=== PATIENT | male | born 2000 | race Two or more races ===

== ENCOUNTER 2019-08-07 19:13 | Emergency (ER) | payer MEDICAID ==
[~2019-08-07] VITALS: Ht 188 cm; Wt 158.8 kg
[2019-08-07 19:36] VITALS: BP 119/92
[2019-08-07 21:46] LABS: Basophils # (auto) 0.1 uL; Basophils % (auto) 0.3 % (0.0-2.0); Eosinophils # (auto) 0 uL; Hematocrit 45.7 % (41.0-53.0); Hemoglobin 15.6 g/dL (13.5-17.5); Lymphocytes # (auto) 0.9 uL; Lymphocytes % (auto) 5.4 % (10.0-50.0); Mean Corpuscular Hemoglobin 30.4 pg (28.0-32.0); Mean Corpuscular Hgb Conc. 34.2 g/dL (32.0-36.0); Mean Corpuscular Volume 88.9 fL (80.0-100.0); Monocytes # (auto) 0.8 uL; Monocytes % (auto) 4.5 % (0.0-12.0); Neutrophils # (auto) 15.7 uL; Neutrophils % (auto) 89.8 % (37.0-80.0); Platelet Count (auto) 224 10^3/uL (140-450); Red Blood Cells 5.14 10^6/uL (4.5-5.90); Red Cell Distribution Width 13.9 % (11.8-14.3); White Blood Cell 17.5 10^3/uL (4.4-10.8)
[2019-08-07 22:03] LABS: Albumin 3.9 g/dL (3.4-5.0); Magnesium 2.4 mg/dL (1.6-2.6)
[2019-08-07 22:05] LABS: BUN/Creatinine Ratio 10.7; Bilirubin, Total 0.3 mg/dL (0.2-1.0); Total Protein 7.7 g/dL (6.4-8.2)
== END 2019-08-07 23:25 | disposition home or self-care (01) ==
LOC: EDBD 19:13 → ER 19:13 → EDSEX 19:13 → ER 23:25
DX: R56.9 Unspecified convulsions (principal)
CPT/HCPCS: 36415; 80053; 83735; 85025; 96365; 99284; J1953; J7060

== ENCOUNTER 2020-09-27 22:26 | Emergency (ER) | payer MEDICAID ==
[~2020-09-27] VITALS: Ht 185.4 cm; Wt 162.4 kg
[2020-09-27] MEDS ORDERED: ALBUTEROL SULF 2.5 MG/0.5ML(0.5%) NEB SOLN NEB ONE (22:45)
[2020-09-27] MEDS ORDERED: IPRATROPIUM BROM 0.5 MG/2.5ML INH SOL NEB ONE (22:45)
[2020-09-27 23:05] VITALS: BP 133/59
[2020-09-28] MEDS ORDERED: methylPREDNISolone SOD SUCC 125 MG/2 ML VL IM ONE (00:30)
== END 2020-09-28 00:59 | disposition home or self-care (01) ==
LOC: ER 22:26
DX: J45.901 Unspecified asthma with (acute) exacerbation (principal); R07.9 Chest pain, unspecified; E66.9 Obesity, unspecified; Z68.42 Body mass index [BMI] 45.0-49.9, adult
CPT/HCPCS: 71045; 94640; 96372; 99283; J2930; J7644

== ENCOUNTER 2022-05-29 21:37 | Emergency (ER) | payer MEDICAID ==
[~2022-05-29] VITALS: Ht 188 cm; Wt 157.7 kg
[2022-05-30] MEDS ORDERED: ONDANSETRON ODT 4 MG TAB PO ONE (01:15)
[2022-05-30] MEDS ORDERED: HYDROcodone-ACET 5/325MG TAB PO ONE (01:15)
[2022-05-30 01:55] VITALS: BP 107/52
[2022-05-30 02:27] LABS: Basophils # (auto) 0.1 10 ^3/uL (0-0.2); Basophils % (auto) 0.4 % (0.0-2.0); Eosinophils # (auto) 0 10 ^3/uL (0-0.8); Eosinophils % (auto) 0.1 % (0.0-7.0); Hematocrit 45.2 % (41.0-53.0); Hemoglobin 15.4 g/dL (13.5-17.5); Lymphocytes # (auto) 1.3 10 ^3/uL (0.4-5.4); Lymphocytes % (auto) 7.7 % (10.0-50.0); Mean Corpuscular Hemoglobin 30.5 pg (28.0-32.0); Mean Corpuscular Hgb Conc. 34.1 g/dL (32.0-36.0); Mean Corpuscular Volume 89.6 fL (80.0-100.0); Monocytes # (auto) 0.9 10 ^3/uL (0-1.3); Monocytes % (auto) 5.2 % (0.0-12.0); Neutrophils # (auto) 15.2 10 ^3/uL (1.6-8.6); Neutrophils % (auto) 86.6 % (37.0-80.0); Nucleated Red Blood Cells % 0.1 %; Red Blood Cells 5.05 10^6/uL (4.5-5.90); Red Cell Distribution Width 13.4 % (11.8-14.3); White Blood Cell 17.5 10^3/uL (4.4-10.8)
[2022-05-30 02:43] LABS: Albumin 3.9 g/dL (3.4-5.0); Calcium 8.5 mg/dL (8.5-10.1); Potassium 3.6 mmol/L (3.5-5.1)
[2022-05-30 02:46] LABS: BUN/Creatinine Ratio 10.4; Bilirubin, Total 1.1 mg/dL (0.2-1.0); Total Protein 7.2 g/dL (6.4-8.2)
[2022-05-30] MEDS ORDERED: HYDR-4902 PO (04:02)
[2022-05-30] MEDS ORDERED: CEPH-510 PO (04:06)
== END 2022-05-30 06:11 | disposition home or self-care (01) ==
LOC: ER 21:37
DX: S00.83XA Contusion of other part of head, initial encounter (principal); S70.11XA Contusion of right thigh, initial encounter; V49.9XXA Car occupant (driver) (passenger) injured in unspecified traffic accident, initial encounter; Y93.89 Activity, other specified; Y92.89 Other specified places as the place of occurrence of the external cause; Y99.8 Other external cause status
CPT/HCPCS: 36415; 70450; 72040; 73552; 80053; 82962; 85025; 93971; 99285; Q0162

== ENCOUNTER 2024-04-23 11:37 | Inpatient (IN) | payer MEDICAID ==
[~2024-04-23] VITALS: Ht 188 cm; Wt 161.2 kg
[~2024-04-23 11:37] MED LIST: CEPH-510 PO; HYDR-4902 PO
[2024-04-23 12:29] LABS: Basophils # (auto) 0.1 10 ^3/uL (0-0.2); Basophils % (auto) 0.4 % (0.0-2.0); Eosinophils # (auto) 0 10 ^3/uL (0-0.8); Hematocrit 47.1 % (41.0-53.0); Hemoglobin 16.4 g/dL (13.5-17.5); Lymphocytes # (auto) 1.6 10 ^3/uL (0.4-5.4); Lymphocytes % (auto) 9.9 % (10.0-50.0); Mean Corpuscular Hgb Conc. 34.7 g/dL (32.0-36.0); Mean Corpuscular Volume 89.3 fL (80.0-100.0); Monocytes % (auto) 6.4 % (0.0-12.0); Neutrophils # (auto) 13.1 10 ^3/uL (1.6-8.6); Neutrophils % (auto) 83.3 % (37.0-80.0); Nucleated Red Blood Cells % 0.1 %; Platelet Count (auto) 250 10^3/uL (140-450); Red Blood Cells 5.27 10^6/uL (4.5-5.90); Red Cell Distribution Width 13.6 % (11.8-14.3); White Blood Cell 15.7 10^3/uL (4.4-10.8)
[2024-04-23 12:39] LABS: Chloride 108 mmol/L (98-107); Potassium 3.7 mmol/L (3.5-5.1); Sodium 141 mmol/L (136-145)
[2024-04-23 12:40] LABS: Anion Gap 7 (5-15); Carbon Dioxide 26 mmol/L (20-31)
[2024-04-23 12:41] LABS: Calcium 10.2 mg/dL (8.7-10.4)
[2024-04-23 12:45] LABS: BUN/Creatinine Ratio 7.9 (10.0-20.0); Blood Urea Nitrogen 9 mg/dL (9-23); Glucose 113 mg/dL (74-106)
[2024-04-23 13:01] LABS: Urine Bacteria None Seen /hpf (None Seen)
--- NOTE | 2024-04-23 13:29 | ED.PDOC ---
HPI (NEURO) HPI Comments 23M presents to the ER w/ prior Hx of seizure which may be associated to the c/c of a seizure. Pt reports on his last seizure being 1-2 months ago after drinking at a constitution party and states that he had one last night w/ trauma to his tongue. Pt states that the seizure was unwitnessed and takes Keppra for his seizures. Social Hx of marijuana use last month but denies any currently , denies tobacco and alcohol use. Denies chills, fever, N/V/D, SOB, CP or other associated symptoms, modifiers, or recent injuries at this time. Chief Complaint: Seizure Time Seen by MD: 13:15 Primary Care Provider: PHILIP Suggs Notes: Nurses Notes, Medications, Allergies Mode of Arrival: Ambulatory Severity: Moderate Headache Severity: None Timing: Hours Duration: Since onset, Hours Prehospital treatment: None Seizure Quality: Single Episodes Seizure Location: Generalized Onset: At rest Circumstances: Spontaneous Symptoms: None Before: Normal During: Awake, Trauma: Tongue After: Normal Mentation History of: Seizure Disorder Associated Signs and Symptoms: None Past Medical History PAST MEDICAL HISTORY: Seizures Surgical History: Denies all surgeries Family History Family History: Reviewed,noncontributory to illness, Unknown Social History Smoker: Non-Smoker Alcohol: Denies ETOH Use Drugs: Marijuana Lives In: Home Constitutional: denies: chills, diaphoresis, fatigue, fever, malaise, sweats, weakness, others EENTM: denies: blurred vision, double vision, ear bleeding, ear discharge, ear drainage, ear pain, ear ringing, eye pain, eye redness, hearing loss, mouth pain, mouth swelling, nasal discharge, nose bleeding, nose congestion, nose pain, photophobia, tearing, throat pain, throat swelling, voice changes, others Respiratory: denies: cough, hemoptysis, orthopnea, SOB at rest, shortness of breath, SOB with excertion, stridor, wheezing, others Cardiovascular: denies: chest pain, dizzy spells, diaphoresis, Dyspnea on exertion, edema, irregular heart beat, left arm pain, lightheadedness, palpitations, PND, syncope, others Gastrointestinal: denies: abdomen distended, abdominal pain, blood streaked bowels, constipated, diarrhea, dysphagia, difficulty swallowing, hematemesis, melena, nausea, poor appetite, poor fluid intake, rectal bleeding, rectal pain, vomiting, others Genitourinary: denies: burning, dysuria, flank pain, frequency, hematuria, incontinence, penile discharge, penile sore, pain, testicle pain, testicle swelling, urgency, others Neurological: reports: seizure; denies: dizziness, fainting, headache, left sided numbness, left sided weakness, numbness, paresthesia, pre-existing deficit, right sided numbness, right sided weakness, speech problems, tingling, tremors, weakness, others Musculoskeletal: denies: back pain, gout, joint pain, joint swelling, muscle pain, muscle stiffness, neck pain, others Integumetry: denies: bruises, change in color, change in hair/nails, dryness, laceration, lesions, lumps, rash, wounds, others Allergic/Immunocompromised: denies: Difficulty Healing, Frequent Infections, Hives, Itching, others Hematologic/Lymphatic: denies: anemia, blood clots, easy bleeding, easy bruising, swollen glands, others Endocrine: denies: excessive hunger, excessive sweating, excessive thirst, excessive urination, flushing, intolerance to cold, intolerance to heat, unexplained weight gain, unexplained weight loss, others Psychiatric: denies: anxiety, bipolar disorder, depression, hopeless, panic disorder, schizophrenia, sleepless, suicidal, others All Other Systems: Reviewed and Negative Physical Exam General Appearance: Moderate Distress, Normal HEENT: Normal ENT Inspection, Pharynx Normal, TMs Normal Neck: Full Range of Motion, Non-Tender, Normal, Normal Inspection Respiratory: Chest Non-Tender, Lungs Clear, No Accessory Muscle Use, No Respiratory Distress, Normal Breath Sounds Cardiovascular: No Edema, No JVD, No Murmur, No Gallop, Normal Peripheral Pulses, Regular Rate/Rhythm Breast Exam: Deferred Gastrointestinal: No Organomegaly, Non Tender, No Pulsatile Mass, Normal Bowel Sounds, Soft Genitalia: Deferred Pelvic: Deferred Rectal: Deferred Extremities: No calf tenderness, Normal capillary refill, Normal inspection, Normal range of motion, Non-tender, No pedal edema Musculoskeletal : Apperance: Normal Neurologic: Alert, academic tutor II-XII nml as Tested, No Motor Deficits, Normal Affect, Normal Mood, No Sensory Deficits Cerebellar Function: NOT DONE Reflexes: NOT DONE Skin: Dry, Normal Color, Warm Peripheral Pulses: 3+ Radial (R), 3+ Radial (L) Lymphatic: No Adenopathy Was a procedure done? Was a procedure done?: No Differential Diagnosis (SZ) Seizure: Psychogenic Seizure, Closed Head Injury, CVA/TIA X-Ray, Labs, Meds, VS Vital Signs Date Time Temp Pulse Resp B/P (MAP) Pulse Ox O2 Delivery O2 Flow Rate FiO2 04/23/24 13:46 79 18 147/77 (100) 98 04/23/24 11:53 98.0 83 18 137/69 (91) 95 Lab Test 04/23/24 13:00 04/23/24 12:03 Range/Units Urine Color Light-yellow Yellow Urine Clarity Turbid H Clear Urine pH 5.5 5.0-9.0 Urine Specific [place] 1.025 1.001-1.035 Urine Protein Trace H Negative Urine Ketones Negative Negative Urine Blood Negative Negative /uL Urine Nitrite Negative Negative Urine Bilirubin Negative Negative Urine Urobilinogen Normal Negative mg/dL Urine Leukocyte Esterase Negative Negative /uL Urine RBC 1 0 - 3 /hpf Urine WBC 8 0 - 3 /hpf Urine Squamous Epithelial Cells Few <5 /hpf Urine Bacteria None seen None Seen /hpf Urine Mucus Few None Seen Urine Glucose Normal Normal mg/dL Urine Opiates Screen Neg NEGATIVE Urine Fentanyl Screen Neg NEGATIVE Urine Barbiturates Screen Neg NEGATIVE Urine Phencyclidine Screen Neg NEGATIVE Urine Amphetamines Screen Neg NEGATIVE Urine Benzodiazepines Screen Neg NEGATIVE Urine Cocaine Screen Neg NEGATIVE Urine Cannabinoids Screen Pos NEGATIVE White Blood Count 15.7 H 4.4-10.8 10^3/uL Red Blood Count 5.27 4.5-5.90 10^6/uL Hemoglobin 16.4 13.5-17.5 g/dL Hematocrit 47.1 41.0-53.0 % Mean Corpuscular Volume 89.3 80.0-100.0 fL Mean Corpuscular Hemoglobin 31.0 28.0-32.0 pg Mean Corpuscular Hemoglobin Concent 34.7 32.0-36.0 g/dL Red Cell Distribution Width 13.6 11.8-14.3 % Platelet Count 250 140-450 10^3/uL Mean Platelet Volume 7.8 6.9-10.8 fL Neutrophils (%) (Auto) 83.3 H 37.0-80.0 % Lymphocytes (%) (Auto) 9.9 L 10.0-50.0 % Monocytes (%) (Auto) 6.4 0.0-12.0 % Eosinophils (%) (Auto) 0.0 0.0-7.0 % Basophils (%) (Auto) 0.4 0.0-2.0 % Neutrophils # (Auto) 13.1 H 1.6-8.6 10 ^3/uL Lymphocytes # (Auto) 1.6 0.4-5.4 10 ^3/uL Monocytes # (Auto) 1.0 0-1.3 10 ^3/uL Eosinophils # (Auto) 0 0-0.8 10 ^3/uL Basophils # (Auto) 0.1 0-0.2 10 ^3/uL Nucleated Red Blood Cells 0.1 % Sodium Level 141 136-145 mmol/L Potassium Level 3.7 3.5-5.1 mmol/L Chloride Level 108 H 98-107 mmol/L Carbon Dioxide Level 26 20-31 mmol/L Anion Gap 7 5-15 Blood Urea Nitrogen 9 9-23 mg/dL Creatinine 1.14 0.700-1.30 mg/dL Glomerular Filtration Rate Calc 92 >90 mL/min BUN/Creatinine Ratio 7.9 L 10.0-20.0 Serum Glucose 113 H 74-106 mg/dL Calcium Level 10.2 8.7-10.4 mg/dL Patient alert. Complaining of having a seizure. He does take Keppra. WBC elevated. Hemoglobin within normal limits. He does have cannabis in his system. Urinalysis within normal limits. He does have abrasion in his mouth. Establish intravenous access. Was given fluids. Reviewed his history. Explained to the patient. Continue cardiac monitoring. Time of 1ST Reevaluation: 13:45 Reevaluation 1ST: Unchanged Patient Education/Counseling: Diagnosis, Treatment, Prognosis Family Education/Counseling: No Family Present Departure 1 Departure Time of Disposition: 15:31 Impression: Primary Impression: Seizure disorder Additional Impression: Dehydration Disposition: 09 ADMITTED INPATIENT Admit to: Med Surg Condition: Guarded Critical Care Note Critical Care Time?: No Stability Stability form required: No Heart Score Heart Score: Heart Score Response (Comments) Value History N/A 0 EKG N/A 0 Age N/A 0 Risk Factors N/A 0 Troponin N/A 0 Total 0 I personally scribed for PEDRO COTTER MD ([email or web address]) on 04/23/24 at 13:29. Electronically submitted by Patric Wall ([email or web address]). PEDRO COTTER MD Apr 23, 2024 13:29
[2024-04-23 13:42] LABS: Urine Blood Negative /uL (Negative); Urine Clarity Turbid (Clear); Urine Color Light-Yellow (Yellow); Urine Mucus FEW (None Seen); Urine Protein, UAD TRACE (Negative); Urine Specific Gravity 1.025 (1.001-1.035); Urine Urobilinogen Normal (Negative); Urine WBC 8 /hpf (0 - 3); Urine pH 5.5 (5.0-9.0)
[2024-04-23 13:52] LABS: Amphetamine Screen, Urine Neg (NEGATIVE); Barbiturate Scree,Urine Neg (NEGATIVE); Benzodiazephine Screen, Urine Neg (NEGATIVE); Cocaine Screen, Urine Neg (NEGATIVE)
[2024-04-23 13:53] LABS: Opiate Scree,Urine Neg (NEGATIVE); Phencyclidine Screen, Urine Neg (NEGATIVE)
[2024-04-23 13:54] LABS: Cannabinoid Screen, Urine Pos (NEGATIVE)
[2024-04-23] MEDS: SODIUM CHLORIDE 0.9% 1,000 ML IV ONE ×2 (16:29→17:10)
[2024-04-23] MEDS: cefTRIAXone 1GM/50ML D5W 50 ML IV ONE (16:31)
[2024-04-23 16:32] VITALS: PULSE 73; RESP 16; O2SAT 98
[2024-04-23] MEDS ORDERED: ONDANSETRON HCL 4 MG/2 ML VIAL IV PRN (21:45)
[2024-04-23] MEDS ORDERED: LORazepam 2MG/ML-1ML VIAL IM PRN (21:45)
[2024-04-23] MEDS ORDERED: MORPHINE SULFATE INJ 2 MG/ml SYRG IV PRN ×2 (21:45)
[2024-04-23] MEDS ORDERED: ACETAMINOPHEN 325 MG TAB PO PRN (21:45)
[2024-04-23] MEDS ORDERED: NITROGLYCERIN 0.4 MG SL TAB SL PRN (21:45)
--- NOTE | 2024-04-23 22:15 | DVH ---
CLINICAL HISTORY: Seizures TECHNIQUE: Helical imaging carried out from skull base to vertex without intravenous contrast. This e xam was performed according to our departmental dose optimization program. Up-to-date CT equipment an d radiation dose reduction techniques are utilized as appropriate. CTDIVol: [CTDIvol] mGy DLP: 1096.22 mGy-cm WID: COMPARISON: HEAD WITHOUT CONTRAST on DOS: 05/30/22 FINDINGS: The ventricles and subarachnoid spaces are normal in size and configuration. There is no midline calista ft or mass effect. The cruz white matter interfaces are maintained. The basal cisterns are patent. Th ere is no evidence of acute intracranial hemorrhage or extra-axial fluid collection. The mastoid air cells and visualized paranasal sinuses are well-aerated. IMPRESSION: No acute intracranial abnormality.
--- NOTE | 2024-04-23 22:30 | DVHHPRES ---
History of Present Illness Resident Creating Document: MARY TAYLOR RESIDENT History of Present Illness Dawson Priest is a 23 years old male with PMH of arthritis, seizure disorder presented to the ED with the chief complaints of seizure episode yesterday morning. Patient reported he had 1 episode of grand mal seizure lasted for 3 minutes in parking lot with a postictal confusion, nausea, vomiting and fatigue yesterday morning in parking lot. Patient reported has been taking Keppra 1000 mg b.i.d. but he missed his dose yesterday morning, developed seizures. Patient denies fever, chest pain, abdominal pain, headache and other acute associated symptoms. Past Medical History Seizures and arthritis Family History: None Past Social History Living with dad. Denies smoking and alcohol but marijuana abuse disorder Review of Systems Constitutional: No: Fever, Chills, Sweats, Weakness, Malaise, Other Eyes: No: Pain, Vision change, Conjunctivae inflammation, Eyelid inflammation, Other, Redness ENT: No: Ear pain, Ear discharge, Nose pain, Nose discharge, Nose congestion, Mouth pain, Mouth swelling, Throat pain, Throat swelling, Other Respiratory: No: Cough, Dry, Shortness of breath, SOB with excertion, Wheezing, Hemoptysis, Pleuritic Pain, Sputum, Wheezing, Other Cardiovascular: No: Chest Pain, Palpitations, Orthopnea, Paroxysmal Noc. Dyspnea, Edema, Lt Headedness, Other Gastrointestinal: No: Nausea, Vomiting, Abdominal Pain, Diarrhea, Constipation, Melena, Hematochezia, Other Genitourinary: No Dysuria, No Frequency, No Incontinence, No Hematuria, No Retention, No Other Musculoskeletal: No: other, neck pain, shoulder pain, arm pain, back pain, hand pain, leg pain, foot pain Neurological: Seizures Allergies: Coded Allergies: NO KNOWN ALLERGIES (Unverified , 12/12/11) Medications Current Medications Medications Dose Ordered Sig/Rogers Route Start Time Stop Time Status Last Admin Dose Admin Sodium Chloride 10 ml Q8HR IV 04/23/24 22:00 Ondansetron HCl 4 mg Q4HP PRN IV 04/23/24 21:45 Acetaminophen 650 mg Q6HP PRN PO 04/23/24 21:45 Morphine Sulfate 2 mg Q4HPRN PRN IV 04/23/24 21:45 Nitroglycerin 0.4 mg Q5MINP PRN SL 04/23/24 21:45 Morphine Sulfate 2 mg Q30M PRN IV 04/23/24 21:45 Lorazepam 1 mg Q6HPRN IM 04/23/24 21:45 UNV Exam Vital Signs Vital Signs Date Time Temp Pulse Resp B/P (MAP) Pulse Ox O2 Delivery O2 Flow Rate FiO2 04/23/24 17:49 69 16 138/90 (106) 100 04/23/24 16:32 Room Air* 0 21 04/23/24 11:53 98.0 Exam Pt is lying on bed General Appearance: Alert, Oriented X3, Cooperative, Not in acute distress HEENT: Small contusion on forehead above right eyebrow, Mucous membranes moist/pink Respiratory: Clear to auscultation, Normal air movement, No added sounds Cardiovascular: Regular rate, Normal S1, Normal S2, No murmurs Abdominal: Active bowel sounds, Soft, no distention, no tenderness Extremities: No edema, Normal pulses, No tenderness/swelling Skin: No Significant rash, except past surgical scars Neuro: Normal speech, sensorimotor deficits none Psych/Mental Status: Mental status NL, Mood NL Nurse was there as sharperone during examination Labs/Xrays Labs Test 04/23/24 21:56 04/23/24 13:00 04/23/24 12:03 Range/Units Urine Color Light-yellow Yellow Urine Clarity Turbid H Clear Urine pH 5.5 5.0-9.0 Urine Specific [place] 1.025 1.001-1.035 Urine Protein Trace H Negative Urine Ketones Negative Negative Urine Blood Negative Negative /uL Urine Nitrite Negative Negative Urine Bilirubin Negative Negative Urine Urobilinogen Normal Negative mg/dL Urine Leukocyte Esterase Negative Negative /uL Urine RBC 1 0 - 3 /hpf Urine WBC 8 0 - 3 /hpf Urine Squamous Epithelial Cells Few <5 /hpf Urine Bacteria None seen None Seen /hpf Urine Mucus Few None Seen Urine Glucose Normal Normal mg/dL Urine Opiates Screen Neg NEGATIVE Urine Fentanyl Screen Neg NEGATIVE Urine Barbiturates Screen Neg NEGATIVE Urine Phencyclidine Screen Neg NEGATIVE Urine Amphetamines Screen Neg NEGATIVE Urine Benzodiazepines Screen Neg NEGATIVE Urine Cocaine Screen Neg NEGATIVE Urine Cannabinoids Screen Pos NEGATIVE Eosinophils (%) (Auto) 0.0 0.0-7.0 % Eosinophils # (Auto) 0 0-0.8 10 ^3/uL Basophils # (Auto) 0.1 0-0.2 10 ^3/uL Nucleated Red Blood Cells 0.1 % Assessment/Plan Assessment/Plan # grand mal seizure -ordered head CT -order seizure precautions -currently on Ativan 1 mg for seizure -continue Keppra 1000 mg b.i.d. -consulted neurology for further evaluation # leukocytosis likely reactive -monitor lab # marijuana abuse disorder -UDS positive -given counseling regarding cessation for more than 17 minutes # Hypokalemia - Repleting - Monitor lab # Morbid obesity with a BMI 44.9 -patient given counseling regarding lifestyle modification # medication nonadherence -explained risks of being noncompliant VTE PPX since patient is ambulatory No GI be PPX Regular diet Goals of care discussed with the patient and family for more than 27 minutes: Full code status Case management discussed with Dr. Olivera, nurse and patient Plan discussed with: Patient My Orders Orders - MARY TAYLOR RESIDENT Procedure Category Date Status Time Admit ADMIT 04/23/24 Transmitted 21:34 Allergies HORACE 04/23/24 In Process 21:34 Code Status CODE 04/23/24 Transmitted 21:34 Sodium Chloride Lock PHA 04/23/24 In Process (Saline Lock Ns) 22:00 Ondansetron Hcl PHA 04/23/24 In Process (Zofran) 21:45 Complete Blood Count LAB 04/24/24 Verified 04:00 Comprehensive LAB 04/24/24 Verified Metabolic Panel 04:00 Acetaminophen Tablet PHA 04/23/24 In Process (Tylenol Tablet) 21:45 Morphine Sulfate PHA 04/23/24 In Process Injection 21:45 Nitroglycerin PHA 04/23/24 In Process Sublingual (Ntrostat 21:45 Morphine Sulfate PHA 04/23/24 In Process Injection 21:45 Oxygen By Nasal RT 04/23/24 Transmitted Cannula 21:34 Stat Ekg For Chest HORACE 04/23/24 In Process Pain 21:34 Notify Md Of Changes HORACE 04/23/24 In Process From Base 21:34 Pull Through Hooker For [facility] 04/23/24 In Process 24 Hours 21:34 Emergency Dysrhythmia HORACE 04/23/24 In Process Protocol 21:34 Rhythm Strips Once [facility] 04/23/24 In Process Every Shift 21:34 Seizure Precautions ED NURSING 04/23/24 Transmitted * Neurology Consult CONS 04/23/24 Transmitted 21:34 Lorazepam 2mg/Ml Inj PHA 04/23/24 Pending (Ativan Inj) 21:[address] 04/23/24 Resulted 21:34 Complete Blood Count LAB 04/23/24 In Process 21:42 Comprehensive LAB 04/23/24 In Process Metabolic Panel 21:42 Blood Alcohol LAB 04/23/24 In Process 21:42 Hemoglobin A1c LAB 04/23/24 In Process 22:21 Vitamin D, 25-Hydroxy LAB 04/23/24 In Process 22:21 Vitamin B12 LAB 04/23/24 In Process 22:21 Thyroid Stimulating LAB 04/23/24 In Process Hormone 22:21 Regular Diet DIET 04/24/24 Transmitted Breakfast Levetiracetam Tablet PHA 04/24/24 Verified (Keppra Tablet) 10:00 Levetiracetam Tablet PHA 04/23/24 Verified (Keppra Tablet) 22:30 MARY TAYLOR RESIDENT Apr 23, 2024 22:30
[2024-04-23 22:45] LABS: Basophils # (auto) 0.1 10 ^3/uL (0-0.2); Basophils % (auto) 0.5 % (0.0-2.0); Eosinophils # (auto) 0.1 10 ^3/uL (0-0.8); Eosinophils % (auto) 0.6 % (0.0-7.0); Hematocrit 46.6 % (41.0-53.0); Hemoglobin 15.6 g/dL (13.5-17.5); Lymphocytes # (auto) 2.7 10 ^3/uL (0.4-5.4); Mean Corpuscular Hemoglobin 30.4 pg (28.0-32.0); Mean Corpuscular Hgb Conc. 33.5 g/dL (32.0-36.0); Mean Corpuscular Volume 90.8 fL (80.0-100.0); Monocytes # (auto) 1.1 10 ^3/uL (0-1.3); Monocytes % (auto) 8.3 % (0.0-12.0); Neutrophils # (auto) 8.9 10 ^3/uL (1.6-8.6); Neutrophils % (auto) 69.6 % (37.0-80.0); Platelet Count (auto) 241 10^3/uL (140-450); Red Blood Cells 5.14 10^6/uL (4.5-5.90); Red Cell Distribution Width 13.2 % (11.8-14.3); White Blood Cell 12.8 10^3/uL (4.4-10.8)
[2024-04-23 22:59] LABS: Alanine Aminotransferase 25 U/L (7-40); Albumin 4.6 g/dL (3.2-4.8); Alkaline Phosphatase 73 U/L (46-116); Anion Gap 6 (5-15); Aspartate Aminotransferase 32 U/L (13-40); BUN/Creatinine Ratio 7.9 (10.0-20.0); Bilirubin, Total 0.7 mg/dL (0.2-1.0); Blood Alcohol 3.2 mg/dL (<10); Blood Urea Nitrogen 8 mg/dL (9-23); Calcium 9.9 mg/dL (8.7-10.4); Carbon Dioxide 27 mmol/L (20-31); Chloride 107 mmol/L (98-107); Glucose 97 mg/dL (74-106); Potassium 3.4 mmol/L (3.5-5.1); Sodium 140 mmol/L (136-145); Total Protein 7.4 g/dL (5.7-8.2)
[2024-04-24] MEDS: SODIUM CHLOR 0.9% PF (SALINE LOCK) 10ML VIAL/SYR IV SCH (00:02)
[2024-04-24] MEDS: levETIRAcetam 500 MG TAB PO ONE (00:44)
[2024-04-24] MEDS: POTASSIUM EFFERVESENT TAB 25 MEQ PO ONE (00:54)
[2024-04-24 02:20] VITALS: RESP 18; O2SAT 95
[2024-04-24 04:57] LABS: Basophils # (auto) 0.1 10 ^3/uL (0-0.2); Basophils % (auto) 0.7 % (0.0-2.0); Eosinophils # (auto) 0.1 10 ^3/uL (0-0.8); Eosinophils % (auto) 1.4 % (0.0-7.0); Lymphocytes # (auto) 2.9 10 ^3/uL (0.4-5.4); Lymphocytes % (auto) 27.9 % (10.0-50.0); Mean Corpuscular Hemoglobin 31.3 pg (28.0-32.0); Mean Corpuscular Hgb Conc. 34.8 g/dL (32.0-36.0); Monocytes # (auto) 0.8 10 ^3/uL (0-1.3); Neutrophils # (auto) 6.5 10 ^3/uL (1.6-8.6); Platelet Count (auto) 218 10^3/uL (140-450); Red Blood Cells 4.78 10^6/uL (4.5-5.90); Red Cell Distribution Width 13.2 % (11.8-14.3); White Blood Cell 10.4 10^3/uL (4.4-10.8)
[2024-04-24 05:05] LABS: Alanine Aminotransferase 22 U/L (7-40); Albumin 4.3 g/dL (3.2-4.8); Alkaline Phosphatase 63 U/L (46-116); Anion Gap 7 (5-15); Aspartate Aminotransferase 26 U/L (13-40); BUN/Creatinine Ratio 6.9 (10.0-20.0); Blood Urea Nitrogen 7 mg/dL (9-23); Calcium 9.5 mg/dL (8.7-10.4); Carbon Dioxide 26 mmol/L (20-31); Chloride 105 mmol/L (98-107); Glucose 100 mg/dL (74-106); Potassium 4.2 mmol/L (3.5-5.1); Sodium 138 mmol/L (136-145)
[2024-04-24 05:06] LABS: Bilirubin, Total 0.8 mg/dL (0.2-1.0); Total Protein 6.7 g/dL (5.7-8.2)
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
[2024-04-24] MEDS: levETIRAcetam 500 MG TAB PO SCH (09:32)
[2024-04-24] MEDS ORDERED: LORazepam 2MG/ML-1ML VIAL IV PRN (10:45)
--- NOTE | 2024-04-24 12:25 | DVHPN2 ---
Progress Note - Dictate Date Seen: Apr 24, 2024 Medical Necessity Reason Pt with a Central, PICC or Fol: No vital signs Vital Sign Date Time Temp Pulse Resp B/P (MAP) Pulse Ox O2 Delivery O2 Flow Rate FiO2 04/24/24 10:00 64 15 127/59 (81) 94 04/24/24 08:00 98.0 98.0 04/24/24 07:35 Room Air* 0 21 Total Intake and Output 04/23/24 04/23/24 04/24/24 15:00 23:00 07:00 Intake Total 1050 ml Balance 1050 ml medications Current Medications Medications Dose Ordered Sig/Rogers Route Start Time Stop Time Status Last Admin Dose Admin Sodium Chloride 10 ml Q8HR IV 04/23/24 22:00 04/24/24 06:07 10 ML Ondansetron HCl 4 mg Q4HP PRN IV 04/23/24 21:45 Acetaminophen 650 mg Q6HP PRN PO 04/23/24 21:45 Morphine Sulfate 2 mg Q4HPRN PRN IV 04/23/24 21:45 Nitroglycerin 0.4 mg Q5MINP PRN SL 04/23/24 21:45 Morphine Sulfate 2 mg Q30M PRN IV 04/23/24 21:45 Lorazepam 1 mg Q6HPRN PRN IM 04/23/24 21:45 Levetiracetam 1,000 mg BID PO 04/24/24 10:00 04/24/24 09:32 1,000 MG Lorazepam 1 mg ONCE PRN IV 04/24/24 10:45 objective General Appearance: alert, no distress HEENT: EOMI, PERRLA, normal external inspect of ears, no icterus, no nasal drainage Neck: no carotid bruit, no jugular venous distention (JVD), no lymphadenopathy Chest: normal thorax Respiratory: clear to auscultation, normal air movement Cardiovascular: regular rate and rhythm, no diastolic murmur, no jugular venous distention (JVD), no rub, no systolic murmur Abdominal: soft, no hepatomegaly, no mass, no splenomegaly, no tenderness Genitourinary: grossly normal external Musculoskeletal: no joint tenderness, no swelling Extremities: normal pulses, no calf tenderness, no clubbing, no cyanosis, no edema Skin: no bruising, no jaundice, no rash Neurological: alert, No focal deficit laboratory and microbiology Laboratory Tests 04/24/24 04:28 Test 04/24/24 04:28 Range/Units Serum Glucose 100 74-106 mg/dL Problem List # grand mal seizure -ordered head CT -order seizure precautions -currently on Ativan 1 mg for seizure -continue Keppra 1000 mg b.i.d. -consulted neurology for further evaluation # leukocytosis likely reactive -monitor lab # marijuana abuse disorder -UDS positive -given counseling regarding cessation for more than 17 minutes # Hypokalemia - Repleting - Monitor lab # Morbid obesity with a BMI 44.9 -patient given counseling regarding lifestyle modification # medication nonadherence Assessment/Plan Subjective: Patient is awake and alert Objective: Patient was admitted yesterday for breakthrough seizure. Patient apparently has not been compliant taking medications. Patient was seen by neurology and he was restarted on her Keppra, no further signs or seizures at this time. MRI is still pending. Plan: Continue current treatment. Monitor neurostatus. Ativan as needed for seizures. Possible DC for tomorrow. Plan discussed with: Patient, Other JONATHAN FISCHER [employer] EXECUTIVE Apr 24, 2024 12:25
[2024-04-24 14:00] VITALS: BP 152/72; PULSE 69; RESP 17; TEMP 98.1; O2SAT 98
--- NOTE | 2024-04-24 14:25 | DVH ---
PROCEDURE: MRI BRAIN HEAD WO CONTRAST INDICATION: 23 years old, Male; Sz. EXAM DATE: 04/24/2024 01:40 PM COMPARISON: HEAD WITHOUT CONTRAST on DOS: 05/30/22 TECHNIQUE: MRI of the brain without intravenous contrast. FINDINGS: Diffusion weighted images of the brain demonstrate no evidence of acute infarction. There is no evidence of acute intracranial hemorrhage, extra-axial collection, mass effect, midline s hift, herniation or hydrocephalus. The ventricles, sulci and cisterns appear age appropriate. The signal intensities of the brain parenchyma are within normal limits. There are no signal abnormalities on the susceptibility weighted sequences. The major vascular flow voids are present. Left maxillary sinus disease The surrounding soft tissues and osseous structures are unremarkable. IMPRESSION: 1. No evidence of acute infarction, intracranial hemorrhage, mass effect or hydrocephalus. HS:Y
[2024-04-24 17:00] VITALS: BP 126/73; PULSE 81; RESP 22; TEMP 98.4; O2SAT 97
[2024-04-24 17:45] VITALS: PULSE 69; RESP 17; O2SAT 98
[2024-04-24 20:00] VITALS: PULSE 69; RESP 17; O2SAT 97
[2024-04-24 21:00] VITALS: BP 117/59; PULSE 69; RESP 17; TEMP 97.5; O2SAT 97
[2024-04-25 01:00] VITALS: BP 126/78; PULSE 57; RESP 16; TEMP 97.5; O2SAT 98
[2024-04-25 05:00] VITALS: BP 124/71; PULSE 55; RESP 20; TEMP 98; O2SAT 8
[2024-04-25 08:30] VITALS: PULSE 66; RESP 18; O2SAT 98
[2024-04-25 09:00] VITALS: BP 145/76; PULSE 66; RESP 18; TEMP 97.5; O2SAT 98
--- NOTE | 2024-04-25 11:54 | DVHPN2 ---
Progress Note - Dictate Medical Necessity Reason Pt with a Central, PICC or Fol: No vital signs Vital Sign Date Time Temp Pulse Resp B/P (MAP) Pulse Ox O2 Delivery O2 Flow Rate FiO2 04/25/24 09:00 97.5 66 18 145/76 (99) 98 97.5 04/24/24 20:00 Room Air* 0 21 Total Intake and Output 04/24/24 04/24/24 04/25/24 15:00 23:00 07:00 Intake Total 0 ml 950 ml Output Total 600 ml 450 ml Balance -600 ml 0 ml 500 ml medications Current Medications Medications Dose Ordered Sig/Rogers Route Start Time Stop Time Status Last Admin Dose Admin Sodium Chloride 10 ml Q8HR IV 04/23/24 22:00 04/25/24 05:49 10 ML Ondansetron HCl 4 mg Q4HP PRN IV 04/23/24 21:45 Acetaminophen 650 mg Q6HP PRN PO 04/23/24 21:45 Morphine Sulfate 2 mg Q4HPRN PRN IV 04/23/24 21:45 Nitroglycerin 0.4 mg Q5MINP PRN SL 04/23/24 21:45 Morphine Sulfate 2 mg Q30M PRN IV 04/23/24 21:45 Lorazepam 1 mg Q6HPRN PRN IM 04/23/24 21:45 Levetiracetam 1,000 mg BID PO 04/24/24 10:00 04/25/24 09:39 1,000 MG Lorazepam 1 mg ONCE PRN IV 04/24/24 10:45 objective General Appearance: alert, no distress HEENT: EOMI, PERRLA, normal external inspect of ears, no icterus, no nasal drainage Neck: no carotid bruit, no jugular venous distention (JVD), no lymphadenopathy Chest: normal thorax Respiratory: clear to auscultation, normal air movement Cardiovascular: regular rate and rhythm, no diastolic murmur, no jugular venous distention (JVD), no rub, no systolic murmur Abdominal: soft, no hepatomegaly, no mass, no splenomegaly, no tenderness Genitourinary: grossly normal external Musculoskeletal: no joint tenderness, no swelling Extremities: normal pulses, no calf tenderness, no clubbing, no cyanosis, no edema Skin: no bruising, no jaundice, no rash Neurological: alert, No focal deficit laboratory and microbiology Laboratory Tests 04/24/24 04:28 Test 04/24/24 04:28 Range/Units Serum Glucose 100 74-106 mg/dL Problem List # grand mal seizure -ordered head CT -order seizure precautions -currently on Ativan 1 mg for seizure -continue Keppra 1000 mg b.i.d. -consulted neurology for further evaluation # leukocytosis likely reactive -monitor lab # marijuana abuse disorder -UDS positive -given counseling regarding cessation for more than 17 minutes # Hypokalemia - Repleting - Monitor lab # Morbid obesity with a BMI 44.9 -patient given counseling regarding lifestyle modification # medication nonadherence Assessment/Plan Subjective: Patient is awake and alert Objective: Patient was admitted yesterday for breakthrough seizure. Patient apparently has not been compliant taking medications. Patient was seen by neurology and he was restarted on her Keppra, no further signs or seizures at this time. MRI is still pending. Plan: Continue current treatment. Monitor neurostatus. Ativan as needed for seizures. Possible DC for tomorrow. JONATHAN FISCHER NP Apr 25, 2024 11:54
[2024-04-25] MEDS ORDERED: KEP500T PO (11:55)
--- NOTE | 2024-04-25 11:55 | DVHDS2 ---
Discharge Summary Date of Admission Apr 23, 2024 at 21:34 Date of Discharge: Apr 25, 2024 Labs/Diagnostic Data: Laboratory Results Test 04/24/24 04:28 04/23/24 21:56 04/23/24 13:00 White Blood Count 10.4 10^3/uL (4.4-10.8) Red Blood Count 4.78 10^6/uL (4.5-5.90) Hemoglobin 15.0 g/dL (13.5-17.5) Hematocrit 43.0 % (41.0-53.0) Mean Corpuscular Volume 90.0 fL (80.0-100.0) Mean Corpuscular Hemoglobin 31.3 pg (28.0-32.0) Mean Corpuscular Hemoglobin Concent 34.8 g/dL (32.0-36.0) Red Cell Distribution Width 13.2 % (11.8-14.3) Platelet Count 218 10^3/uL (140-450) Mean Platelet Volume 7.4 fL (6.9-10.8) Neutrophils (%) (Auto) 62.0 % (37.0-80.0) Lymphocytes (%) (Auto) 27.9 % (10.0-50.0) Monocytes (%) (Auto) 8.0 % (0.0-12.0) Eosinophils (%) (Auto) 1.4 % (0.0-7.0) Basophils (%) (Auto) 0.7 % (0.0-2.0) Neutrophils # (Auto) 6.5 10 ^3/uL (1.6-8.6) Lymphocytes # (Auto) 2.9 10 ^3/uL (0.4-5.4) Monocytes # (Auto) 0.8 10 ^3/uL (0-1.3) Eosinophils # (Auto) 0.1 10 ^3/uL (0-0.8) Basophils # (Auto) 0.1 10 ^3/uL (0-0.2) Nucleated Red Blood Cells 0.0 % Sodium Level 138 mmol/L (136-145) Potassium Level 4.2 mmol/L (3.5-5.1) Chloride Level 105 mmol/L (98-107) Carbon Dioxide Level 26 mmol/L (20-31) Anion Gap 7 (5-15) Blood Urea Nitrogen 7 mg/dL (9-23) Creatinine 1.01 mg/dL (0.700-1.30) Glomerular Filtration Rate Calc 107 mL/min (>90) BUN/Creatinine Ratio 6.9 (10.0-20.0) Serum Glucose 100 mg/dL (74-106) Calcium Level 9.5 mg/dL (8.7-10.4) Total Bilirubin 0.8 mg/dL (0.2-1.0) Aspartate Amino Transferase (AST) 26 U/L (13-40) Alanine Aminotransferase (ALT) 22 U/L (7-40) Alkaline Phosphatase 63 U/L (46-116) Total Protein 6.7 g/dL (5.7-8.2) Albumin 4.3 g/dL (3.2-4.8) Hemoglobin A1c 5.3 % A1C (<5.7) Vitamin B12 Level 503 pg/mL (211-911) Vitamin D 25-Hydroxy 30.2 ng/mL (30.0-100) Thyroid Stimulating Hormone (TSH) 3.95 uIU/mL (0.55-4.78) Plasma/Serum Blood Alcohol 3.2 mg/dL (<10) Urine Color Light-yellow (Yellow) Urine Clarity Turbid (Clear) Urine pH 5.5 (5.0-9.0) Urine Specific [place] 1.025 (1.001-1.035) Urine Protein Trace (Negative) Urine Ketones Negative (Negative) Urine Blood Negative /uL (Negative) Urine Nitrite Negative (Negative) Urine Bilirubin Negative (Negative) Urine Urobilinogen Normal mg/dL (Negative) Urine Leukocyte Esterase Negative /uL (Negative) Urine RBC 1 /hpf (0 - 3) Urine WBC 8 /hpf (0 - 3) Urine Squamous Epithelial Cells Few /hpf (<5) Urine Bacteria None seen /hpf (None Seen) Urine Mucus Few (None Seen) Urine Glucose Normal mg/dL (Normal) Urine Opiates Screen Neg (NEGATIVE) Urine Fentanyl Screen Neg (NEGATIVE) Urine Barbiturates Screen Neg (NEGATIVE) Urine Phencyclidine Screen Neg (NEGATIVE) Urine Amphetamines Screen Neg (NEGATIVE) Urine Benzodiazepines Screen Neg (NEGATIVE) Urine Cocaine Screen Neg (NEGATIVE) Urine Cannabinoids Screen Pos (NEGATIVE) Other Laboratory Tests 04/24/24 04:28 Brief Hx & Hospital Course: Patient was admitted for breakthrough seizure. Patient currently has not been compliant taking his seizure medications appropriately. Patient was seen by neurology. MRI had no acute findings. Patient was educated to continue taking his antiepileptic medications with Keppra 1000 mg p.o. twice a day. He does see Dr. Remy Cardoso outpatient. Patient was seen by Dr. Bowers here at [facility]. No further breakthrough seizures were noted once home medication was resumed. Patient was cleared for discharge. He will follow-up with his PCP in 1 week. Patient is aware [facility] report was given and he will have to follow-up to clear his record at [facility] in order to reobtain his driving capabilities. The patient received proper medical treatment and medications. Vital signs, Imaging and Laboratory Work was monitored daily. All consults recommendations were followed as provided. There were no complaints or new complaints upon discharge, all questions and concerns were answered. Patient was advised to return to the ER or call 911 if any headaches, dizziness, shortness of breath, chest pain, bleeding, fevers, or worsening of medical condition. Patient/Family was counseled about treatment plan, medications, possible side effects, patient verbalized understanding. All questions were answered to the best of my ability. The patient symptoms improved and they are okay to be DC. Condition at Discharge: Stable Final Diagnosis/Problems List Grand mal seizure Leukocytosis likely reactive Marijuana abuse disorder Hypokalemia Morbid obesity with a BMI 44.9 medication nonadherence Discharge Disposition: Home Discharge Statement: "Patient was advised to return to the ER or call 911 if any headaches, dizziness, shortness of breath, chest pain, abdominal pain, bleeding, fevers, or worsening of medical condition. Patient was counseled about treatment plan, medications, possible side effects, patientverbalized understanding. All questions were answered to the best of my ability. This discharge took greater then 30 minutes in planning, reviewing documentation, counseling the patient, and discussing with other team members." ASSESSMENT ASSESSMENT Assessment JONATHAN FISCHER NP Apr 25, 2024 11:55
[2024-04-25 13:00] VITALS: BP 121/68; PULSE 64; RESP 17; TEMP 98; O2SAT 98
[2024-04-25 13:35] VITALS: BP 121/68; PULSE 64; RESP 17; TEMP 98; O2SAT 98
== END 2024-04-25 14:57 | disposition home or self-care (01) | DRG 53 ==
LOC: ER 11:37 → OVERFLOW 21:34 → CENTRAL 04-24 14:42
PROVIDERS: ATTEND Nurse Practitioner
DX: G40.409 Other generalized epilepsy and epileptic syndromes, not intractable, without status epilepticus (principal); D72.829 Elevated white blood cell count, unspecified; E66.01 Morbid (severe) obesity due to excess calories; E86.0 Dehydration; Z68.41 Body mass index [BMI] 40.0-44.9, adult; E87.6 Hypokalemia; F12.19 Cannabis abuse with unspecified cannabis-induced disorder; Z72.820 Sleep deprivation; Z83.3 Family history of diabetes mellitus; Z91.148 Patient's other noncompliance with medication regimen for other reason; Z91.199 Patient's noncompliance with other medical treatment and regimen due to unspecified reason
CPT/HCPCS: 36415; 70450; 70551; 80048; 80053; 80307; 80320; 81001; 82306; 82607; 83036; 84443; 85025; 96365; G0378